=== PATIENT | female | born 1965 | race Caucasian/White ===

== ENCOUNTER 2019-08-05 06:56 | Emergency (ER) | payer MEDICAID ==
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
[2019-08-05] MEDS ORDERED: cloNIDine 0.1 MG Tab PO ONE (07:23)
[2019-08-05] MEDS ORDERED: Nicotine 21 MG/24 Hr Patch TRDERM ONE (07:47)
[2019-08-05] MEDS ORDERED: Diazepam 5 MG Tab PO ONE (07:47)
--- NOTE | 2019-08-05 08:20 | CR ---
Chest: Portable view of the chest was obtained. Comparison: No prior chest imaging is available. Heart is somewhat generous in size although is accentuated from portable technique. Upper mediastinum is normal. Lungs are clear with no acute parenchymal change. Bony structures are grossly intact. Impression: 1. Nothing acute is appreciated on portable chest x-ray. Diagnostic code #1 This report was dictated in MDT
[2019-08-05 09:45] VITALS: BP 113/52; PULSE 80
== END 2019-08-05 09:35 | disposition home or self-care (01) ==
LOC: JD.ED 06:56
DX: F11.20 Opioid dependence, uncomplicated (principal); I10 Essential (primary) hypertension; F17.210 Nicotine dependence, cigarettes, uncomplicated; E66.9 Obesity, unspecified; Z68.32 Body mass index [BMI] 32.0-32.9, adult; Z91.040 Latex allergy status
CPT/HCPCS: 36415; 71045; 80053; 80306; 80307; 81001; 84443; 85025; 86803; 87340; 93005; 99284; A9270; 93010